=== PATIENT | female | born 1950 | race Caucasian/White ===

== ENCOUNTER 2025-01-09 10:58 | Emergency (ER) | payer MEDICARE, SELFPAY ==
[2025-01-09 10:58] VITALS: BMI 37.1
[2025-01-09 11:00] VITALS: BP 204/84
--- NOTE | 2025-01-09 11:23 | ED.GENMED ---
History of Present Illness
General
Chief Complaint: Musculo-Skeletal Complaint
Source: patient
Exam Limitations: none
Time Seen by Provider: 01/09/25 11:14
History of Present Illness
History of Present Illness:
74yoF with a history of fibromyalgia and hypertension presenting for evaluation of left leg pain. She has been experiencing pain primarily in her left medial ankle for the past 1.5 weeks. She denies any trauma or inciting incident. Pain is now
migrating to her calf and medial knee. She has been taking Lyrica and naproxen without much relief. She is otherwise asymptomatic and denies any fevers.
Phy Exam
General Physical Exam
General Presentation: well appearing and no apparent distress
General Skin: warm and dry
General Habitus: normal
General Mental: alert
ENT Exam
ENT Exam: normocephalic
Pulmonary Exam
Pulmonary Exam: no respiratory distress
Neurological Exam
Neurological Exam: alert
Siva Coma Scale
Eye Opening: Spontaneous
Verbal Response: Oriented
Motor Response: Obeys Commands
GCS Total Score: 15
Musculoskeletal Exam
Musculoskeletal Exam: other (L ankle: Localized swelling noted without erythema/wounds. +Tenderness to medial aspect of ankle. ROM intact. 2+ DP pulse and sensation intact. )
Skin Exam
Skin Exam: normal color and warm/dry
Psychiatric Exam
Psychiatric Exam: normal mood/affect
Course
Orders/Labs/Results
Orders:
Orders
01/09/25 11:22
Oxycodone/Acetaminophen [Percocet 5/325] 1 tablet PO NOW STA
CR Ankle - Left Min 3 Views Urgent
Comment:
Reason For Exam: atraumatic pain
CR Knee - Left 4 Or More View* Urgent
Comment:
Reason For Exam: atraumatic pain
Venous Doppler Lwr Ext Left [US Periph Venous LOWER Ext LT] Urgent
Comment:
Reason For Exam: Leg pain
Vital Signs
Initial and Last Documented VS:
Initial Vital Signs
Temp Pulse Resp BP
97.7 F 66 20 204/84
01/09/25 11:00 01/09/25 11:00 01/09/25 11:00 01/09/25 11:00
Last Documented Vital Signs
Temp Pulse Resp BP Pulse Ox
97.3 F 66 20 134/98 96
01/09/25 11:36 01/09/25 11:00 01/09/25 11:00 01/09/25 13:00 01/09/25 13:30
MDM/Problems Addressed
Differential Diagnosis Includes:
74yoF here with atraumatic L ankle pain x 1.5 weeks. Now radiating to the calf/knee. Hx of fibromyalgia. She is hypertensive with otherwise stable vitals. Localized swelling noted on exam. Foot is warm and well perfused with 2+ DP pulse.
Differential diagnosis includes but is not limited to: sprain, tendonitis, DVT, pain related to fibromyalgia, doubt fracture
X-rays of L ankle and knee obtained which are negative for fractures. Venous duplex is negative for DVT. Patient stable for discharge. She is taking naproxen sporadically and she was advised to take this BID for the next few days. She has an appt
with her PCP in 3 days. She was also given contact information for pain management.
*Pulse Oximetry
Oxygen Mode of Delivery: Room air
Patient hypoxic: no
*Critical Care Note
Total Time (30-74mins, 75-104mins- exclusive of procedures): Not Applicable
ED Attending Note
-
Portions of this chart may have been created with voice recognition software.� Occasional wrong word or��sound alike� substitutions may have occurred due to the inherent limitations of voice recognition software.
Discharge Plan
Departure
Patient Disposition: Home (Routine Discharge)
Date of Disposition: 01/09/25
Time of Disposition: 13:44
Patient with high blood pressure during this ER visit?: No
Discharge Problem:
Left ankle pain
Instructions: Muscle and Bone Pain (DC)
Referrals:
Salas Castillo MD [Active, Anesthesiology]
Activity Restrictions/Additional Instructions:
Increase your naproxen to twice a day for the next 3 to 4 days.
Please follow-up with your family doctor on Sunday as previously scheduled. Contact information for a pain management doctor is provided below.
Return to the ER with any new or worsening symptoms.
Interventions
Interventions:
*Risk Screen - Suicide Last Done: 01/09/25 11:00
*General Assessment Last Done: 01/09/25 11:00
*Neglect/Abuse Screening Last Done: 01/09/25 11:00
*ED- Fall Risk Assessment Last Done: 01/09/25 11:54
*ED COVID-19 Vaccine History Last Done: 01/09/25 12:08
*Nursing Disposition Last Done: 01/09/25 14:30
ED-Musculoskeletal Assessment Last Done: 01/09/25 11:36
Discharge Date and Time
Discharge Date/Time: 01/09/25 14:36
Print Language: SAO TOMEAN
[2025-01-09] MEDS: PERCOCET 5/325 1 TABLET PO (11:33)
[2025-01-09 11:35] VITALS: BP 187/68
[2025-01-09 12:22] VITALS: BP 177/65
[2025-01-09 12:54] VITALS: BP 156/61
[2025-01-09 13:00] VITALS: BP 134/98
== END 2025-01-09 14:36 | disposition home or self-care (01) ==
LOC: EMR 10:58
PROVIDERS: EMERGENCY PHYSICIAN Emergency Medicine; FAMILY PHYSICIAN Family Medicine
DX: M25.572 Pain in left ankle and joints of left foot (principal); R22.42 Localized swelling, mass and lump, left lower limb; M79.7 Fibromyalgia; I10 Essential (primary) hypertension; Z79.899 Other long term (current) drug therapy
CPT/HCPCS: 99284; 73564; 73610; 93971

== ENCOUNTER 2025-03-08 11:36 | Emergency (ER) | payer MEDICARE, SELFPAY ==
[2025-03-08 11:37] VITALS: BP 232/111
[2025-03-08 12:15] VITALS: BP 191/87; BMI 37.9
--- NOTE | 2025-03-08 13:22 | ED.MUSCINJ ---
HPI-Injury
General
Chief Complaint: Musculo-Skeletal Complaint
Source: patient and family (Daughter at bedside)
Exam Limitations: none
Time Seen by Provider: 03/08/25 12:22
Nursing documentation reviewed up to this point in time: agreed with
History of Present Illness-Injury
Initial Injury comments:
75-year-old female with history of fibromyalgia presents for left mid upper arm and left elbow pain. She states the pain started on 02/16 when she was in a bathroom stall at [facility], the door to the stall swung back and the look on the back of the
door struck her mid outer left upper arm. She states she has been having pain ever since. She saw her PCP twice for this pain, once on 02/23 and once on 03/02. Second visit given rx for Prednisone taper and P/T was recommended. pt states she has
been unable to sleep due to the pain. She is here requesting an MRI. She states she feels numbness and weakness in the arm.
Past History
Past History
ED Past Medical History: Fibromyalgia and HTN
ED Past Surgical History: Cholecystectomy and Gynecological
Review of Systems
Review of Systems
Allergies reviewed?: Yes
All Other Systems: ROS reviewed and negative except as documented in HPI and ROS
Phy Exam
Physical Exam
Physical Exam:
GENERAL: No acute distress. A&Ox3.
CONSTITUTIONAL: Afebrile.
RESPIRATORY: Regular respirations, nonlabored, lungs clear.
CARDIOVASCULAR: Regular rate and rhythm, no murmurs, no rubs.
MUSCULOSKELETAL: Moves with ease. Well perfused. Left arm has full range of motion at shoulder and elbow and wrisst, mildly tender to palpate mid upper arm which is large and very fleshy and has a very mild area of ecchymosis, tender to palpate
about the left elbow medial lateral epicondyles, full range of motion. Distal neurovascular intact. Strength 5/5.
SKIN: Warm, dry, pink
PSYCH: Normal mood and affect. Well kept, interactive and appropriate
NEUROLOGIC: Awake, alert and oriented. No focal neurological deficits
Injury Course
Orders/Labs/Results
Orders:
Orders
03/08/25 13:43
Ketorolac [Toradol] 30 mg IM NOW STA
MDM/Problems Addressed
MDM/Problems Addressed:
75-year-old female with history of fibromyalgia presents for left mid upper arm and left elbow pain. She states the pain started on 02/16 when she was in a bathroom stall at [facility], the door to the stall swung back and the look on the back of the
door struck her mid outer left upper arm. She states she has been having pain ever since. She saw her PCP twice for this pain, once on 02/23 and once on 03/02. Second visit given rx for Prednisone taper.
Initially they did not mention physical therapy but when I finally said perhaps physical therapy that you need, she then said she has been ordered physical therapy by her primary doctor. And P/T was recommended. pt states she has been unable to
sleep due to the pain. She is here requesting an MRI. She states she feels numbness and weakness in the arm.
Patient and daughter are requesting an MRI. I explained that we do not do MRIs in the emergency room for this type of problem. She is asking what should she do? I recommended a Toradol injection and a prescription for Toradol sent to her pharmacy
but she declined. She just wants the pain to go away. She has not seen an orthopedic doctor about this but she is asking for an injection into the part of her arm that is hurting her pointing to the mid upper arm.
She appears in no distress but is explaining how painful the arm is and how it is tingly and she cannot use it as she is moving it completely all around with full range of motion.
I offered her x-rays of the shoulder the upper arm and the elbow to see if there is possibly arthritis of the joints but she refused saying she would rather have an MRI
So she is declining pain medicine as well as x-rays. Her daughter mention a blood clot I said highly unlikely however I was willing to do an ultrasound and they declined that also.
1:45 PM:
After patient was given her discharge papers and I reviewed her discharge instructions with her and daughter, she now decides that she wants the shot of Toradol and a prescription for Toradol sent to her pharmacy. This was done. She is still
asking for an MRI. She was encouraged to follow-up with orthopedics
*Pulse Oximetry
SaO2: 97
Oxygen Mode of Delivery: Room air
Patient hypoxic: not evaluated
*Critical Care Note
Total Time (30-74mins, 75-104mins- exclusive of procedures): Not Applicable
ED Attending Note
-
Portions of this chart may have been created with voice recognition software.� Occasional wrong word or��sound alike� substitutions may have occurred due to the inherent limitations of voice recognition software.
Discharge Plan
Departure
Patient Disposition: Home (Routine Discharge)
Date of Disposition: 03/08/25
Time of Disposition: 13:30
Patient with high blood pressure during this ER visit?: Yes
Condition: Good
Discharge Problem:
Left arm pain
Instructions: Muscle, joint, and bone pain (DC)
Prescriptions:
New
ketorolac 10 mg tablet
10 mg PO Q8H 5 Days Qty: 15 0RF
Referrals:
Israel Valenzuela MD [Active, Orthopedics] - Next open appointment
Christina Lentz DO [Family Provider, Family Practice] - Call in 1-3 days for appt
Activity Restrictions/Additional Instructions:
As we discussed, I offered you Toradol injection for pain and a prescription to send your pharmacy but you kindly declined.
You may take ibuprofen 600 mg, with food, every 6 hours as needed for pain.
You have also kindly refused xray of shoulder and elbow as well as Ultrasound of the arm.
Finish your prednisone that was prescribed by your doctor if you have not done so
You informed me that your doctor prescribed physical therapy for the arm and I recommend that you follow-up with that
I have provided you the name of an orthopedic doctor to follow-up with. If you should need an MRI your family doctor or the orthopedic doctor should order it
Interventions
Interventions:
*Risk Screen - Suicide Last Done: 03/08/25 11:37
*General Assessment Last Done: 03/08/25 11:37
*Neglect/Abuse Screening Last Done: 03/08/25 11:37
*ED- Fall Risk Assessment Last Done: 03/08/25 12:14
*ED COVID-19 Vaccine History Last Done: 03/08/25 11:37
*ED Influenza Vaccine History Last Done: 03/08/25 11:37
*Nursing Disposition Last Done: 03/08/25 13:49
ED-Musculoskeletal Assessment Last Done: 03/08/25 12:15
Discharge Date and Time
Discharge Date/Time: 03/08/25 13:51
Print Language: GREEK
[2025-03-08 13:42] VITALS: BP 204/77
[2025-03-08] MEDS: TORADOL 30 MG IM (13:47)
== END 2025-03-08 13:51 | disposition home or self-care (01) ==
LOC: EMR 11:36
PROVIDERS: EMERGENCY PHYSICIAN Emergency Medicine; FAMILY PHYSICIAN Family Medicine
DX: M79.622 Pain in left upper arm (principal); I10 Essential (primary) hypertension; M79.7 Fibromyalgia; W20.8XXA Other cause of strike by thrown, projected or falling object, initial encounter; Y92.512 Supermarket, store or market as the place of occurrence of the external cause
CPT/HCPCS: 99284; 96372